=== PATIENT | male | born 1955 | race Caucasian/White ===

== ENCOUNTER → 2019-01-21 16:44 | Outpatient (CLI) | payer OTHER, SELFPAY ==
--- NOTE | 2019-01-21 16:48 | DI.RAD.S_ITS ---
PROCEDURE: XR KNEE RT 3V INDICATIONS: right knee injury TECHNIQUE: 3 views of the knee were acquired. COMPARISON: None. FINDINGS: Bones: No fractures or dislocations. No suspicious bony lesions. Mild degenerative joint disease with small periarticular osteophytes. Soft tissues: Small joint effusion. No suspicious soft tissue calcifications. IMPRESSION: No fracture or dislocation. Dictated by: Jackie Guardado M.D. on 01/22/2019 at 17:12 Approved by: Jackie Guardado M.D. on 01/22/2019 at 17:13
== END ==
PROVIDERS: PCP Student in an Organized Health Care Education/Training Program; Visit Provider Student in an Organized Health Care Education/Training Program
DX: S89.91XA Unspecified injury of right lower leg, initial encounter (principal); M17.11 Unilateral primary osteoarthritis, right knee; M25.461 Effusion, right knee; X58.XXXA Exposure to other specified factors, initial encounter
CPT/HCPCS: 73562

== ENCOUNTER → 2019-03-03 11:47 | Outpatient (CLI) | payer OTHER, SELFPAY | PROVIDERS: Family Provider Student in an Organized Health Care Education/Training Program; PCP Student in an Organized Health Care Education/Training Program; Visit Provider Orthopaedic Surgery | DX: Z01.818 Encounter for other preprocedural examination (principal); S83.241A Other tear of medial meniscus, current injury, right knee, initial encounter | CPT/HCPCS: 93005; 93010 ==

== ENCOUNTER 2019-04-28 08:39 | Emergency (ER) | payer OTHER, SELFPAY ==
[2019-04-28 08:48] VITALS: BP 189/90; PULSE 79; RESP 16; TEMP 37.2; O2SAT 97; BMI 40.2
--- NOTE | 2019-04-28 08:49 | ED.GENADULT ---
HPI - General Adult General Chief complaint: Extremity Injury, Lower Stated complaint: knee locked up Time Seen by Provider: 04/28/19 08:45 Source: patient Mode of arrival: Wheelchair Limitations: no limitations History of Present Illness HPI narrative: 63-year-old male with a known right knee injury. It is an injury from December. He is under the care of Orthopedics. Has a knee brace on right knee. He states he has a torn meniscus. Review of our records here show no MRIs. He states that last evening he was lying in bed in his knee ?locked up? this morning he has pain with weight-bearing. He tried to contact his orthopedic doctor's office but that provider is in surgery. Came to the emergency department to ?get it documented ? Related Data Allergies Allergy/AdvReac Type Severity Reaction Status Date / Time No Known Drug Allergies Allergy Verified 04/28/19 08:48 Review of Systems Musculoskeletal Musculoskeletal: Denies tingling Comments: Right knee pain Integumentary/Breasts Skin/Breast: Denies rash Neurologic Neurologic: Denies tingling Hematologic/Lymphatic Hematologic/Lymphatic: Denies easy bleeding and Denies easy bruising Patient History Medical History Right knee injury (Acute) Social History Smoking Status: Former smoker alcohol intake: current substance use type: does not use Smoking Status: Former smoker Exam Initial Vital Signs Initial Vital Signs: Vital Signs Temperature 98.9 F 04/28/19 08:48 Pulse Rate 79 04/28/19 08:48 Respiratory Rate 16 04/28/19 08:48 Blood Pressure 189/90 H 04/28/19 08:48 Pulse Oximetry 97 04/28/19 08:48 Const General: cooperative Limitations: mental status not altered Cardio Pulses: dorsalis pedis present on the right Skin Lesions: no lesions Rashes: no rashes Extrem Other: Patient able to extend the right knee. Is able to flex to almost 90? right knee. Psych Appearance: grossly normal and well kempt Course Vital Signs Vital signs: Vital Signs - 8 hr 04/28/19 08:48 Temperature 98.9 F Pulse Rate 79 Respiratory Rate 16 Blood Pressure 189/90 H Pulse Oximetry 97 Medical Decision Making [facility] Narrative Medical decision making narrative: Patient. Has a known meniscus tear. I feel that radiologic studies not needed currently. He was offered a knee immobilizer but he declined. He would like crutches. He has a follow-up with Orthopedics tomorrow. Discharge Plan Departure Patient Disposition: Home Clinical Impression: Knee pain, right Qualifiers: Chronicity: acute Qualified Code(s): M25.561 - Pain in right knee Instructions: DI for Meniscal Tear Activity Restrictions/Additional Instructions: You can weight bear as tolerated. Keep your follow-up with the orthopedic department tomorrow. Follow all of their instructions. Return to the emergency department for any new symptoms Referrals: Fani Paez MD [Primary Care Provider] -
== END 2019-04-28 09:43 | disposition home or self-care (01) ==
LOC: ED 09:18
PROVIDERS: Emergency Provider Emergency Medicine; Family Provider Student in an Organized Health Care Education/Training Program; PCP Student in an Organized Health Care Education/Training Program
DX: M25.561 Pain in right knee (principal)
CPT/HCPCS: 99282

== ENCOUNTER → 2019-08-04 15:46 | Outpatient (CLI) | payer OTHER, SELFPAY | PROVIDERS: Family Provider Student in an Organized Health Care Education/Training Program; PCP Student in an Organized Health Care Education/Training Program; Referring Provider Orthopaedic Surgery; Visit Provider Orthopaedic Surgery | DX: Z01.818 Encounter for other preprocedural examination (principal) | CPT/HCPCS: 93005 ==

== ENCOUNTER → 2024-06-02 08:48 | Outpatient (CLI) | payer OTHER, SELFPAY ==
--- NOTE | 2024-06-02 08:51 | DI.CT.S_ITS ---
PROCEDURE: CT KIDNEY URETER BLADDER (KUB) INDICATIONS: AAA SCREENING/URINARY FREQUENCY/FLANK PAIN TECHNIQUE: Axial sections were acquired from the lung bases to the pubic symphysis. Coronal and sagittal reformats were performed. For radiation dose reduction, the following was used: automated exposure control, adjustment of mA and/or kV according to patient size. COMPARISON: None. FINDINGS: Image quality: Diagnostic. Lower Chest: No significant findings. URINARY: Right Kidney: No stones or hydronephrosis. Right Ureter: No hydroureter. Left Kidney: No stones or hydronephrosis. Simple left renal cysts which require no additional imaging. Left Ureter: No hydroureter. Bladder: Normal wall thickness. No stones. ABDOMEN: Liver: No contour-deforming solid mass. Hepatic cysts. Gallbladder: Gallbladder contains a calcified gallstone without gallbladder wall thickening or pericholecystic edema. Biliary ducts: No biliary dilation. Pancreas: No ductal dilation. Spleen: Size is within normal limits. Adrenal Glands: No adrenal nodules. Stomach and Bowel: Small hiatal hernia. Normal colonic caliber, without significant wall thickening. Scattered colonic diverticuli without evidence of diverticulitis. The appendix is normal. Peritoneum: No abnormal intraperitoneal fluid. No free air. Ventral Wall: No hernia. Abdominal Nodes: No enlarged retroperitoneal or mesenteric lymph nodes. Vessels: Aorta and inferior vena cava are normal in size. PELVIS: Pelvic Organs: Unremarkable. Pelvic Nodes: Unremarkable. Miscellaneous: No inguinal hernias are seen. Bones: Spine degenerative disc disease and facet arthropathy. IMPRESSION: No obstructing stones or hydronephrosis. Cholelithiasis without CT evidence of cholecystitis. Colonic diverticulosis without evidence of diverticulitis. Dictated by: Sandra Gill MD, PhD on 06/02/2024 at 12:33 Approved by: Sandra Gill MD, PhD on 06/02/2024 at 12:37
--- NOTE | 2024-06-02 08:52 | DI.US.S_ITS ---
PROCEDURE: US ABD AORTA ANEURYSM SCREEN INDICATIONS: SCREENING TECHNIQUE: Real time scanning was performed of the aorta and iliac arteries, with image documentation. COMPARISON: [facility], CT, CT KIDNEY URETER BLADDER (KUB), 06/02/2024, 8:57. FINDINGS: Aorta: Proximal aortic diameter measures 3.0 cm. Mid-aorta measures 3.0 cm. Distal aortic diameter is 2.3 cm. Iliac arteries: Right common iliac artery measures 1.4 cm. Left common iliac artery measures 1.7 cm. 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 IMPRESSION: 1. Mild aneurysmal dilatation of the proximal aorta measuring up to 3.0 cm. 3 year follow-up ultrasound recommended. 2. Incidental findings as above. Dictated by: Yogesh Haywood [facility] Interpreted: Danny North MD on 06/02/2024 at 10:29 Transcribed by: NAIN on 06/02/2024 at 10:33 Approved by: Danny North M.D. on 06/10/2024 at 8:44
== END ==
PROVIDERS: Family Provider Student in an Organized Health Care Education/Training Program; PCP Family Medicine; Referring Provider Family Medicine; Visit Provider Family Medicine
DX: I71.40 Abdominal aortic aneurysm, without rupture, unspecified (principal); R35.0 Frequency of micturition; R10.9 Unspecified abdominal pain; Z13.6 Encounter for screening for cardiovascular disorders; Z87.891 Personal history of nicotine dependence; K76.0 Fatty (change of) liver, not elsewhere classified; K76.89 Other specified diseases of liver; K80.20 Calculus of gallbladder without cholecystitis without obstruction; K44.9 Diaphragmatic hernia without obstruction or gangrene; K57.90 Diverticulosis of intestine, part unspecified, without perforation or abscess without bleeding
CPT/HCPCS: 74176; 76706